=== PATIENT | female | born 1990 | race Caucasian/White ===

== ENCOUNTER 2018-05-29 00:58 | Inpatient (IN) ==
[2018-05-29 00:51] LABS: Basophils # 0.1 K/mcL (0.0-0.2); Basophils % 0.3 %; Eosinophils # 0.4 K/mcL (0.0-0.6); Eosinophils % 2.2 %; Hematocrit 35.2 % (35.3-44.9); Hemoglobin 11.1 g/dL (11.5-15.4); Immature Granulocytes % 0.8 % (0-4); Lymphocytes # 1.6 K/mcL (0.6-4.6); Mean Corpuscular HGB Conc 31.5 g/dL (31.6-35.5); Mean Corpuscular Hemoglobin 27.1 pg (28.0-33.3); Mean Corpuscular Volume 85.9 fL (83.0-100.0); Mean Platelet Volume 11.7 fL (9.4-12.4); Monocytes # 1.5 K/mcL (0.0-1.3); Monocytes % 8.1 %; Neutrophils # 14.6 K/mcL (1.6-8.9); Platelet Count 202 K/mcL (140-400); Red Cell Distribution Width 13.1 % (11.5-14.5); Segmented Neutrophils % 79.6 %
[~2018-05-29 00:58] MED LIST: Famotidine 20 MG/2 ML VIAL IVP PRN; Metoclopramide 10 MG/2 ML VIAL IVP PRN; Naloxone 0.4 MG/ML INJ IVP PRN; Ondansetron 4 MG/2 ML VIAL IVP PRN; Ringers Solution, Lactated 1,000 ML IVC SCH; Ringers Solution, Lactated 1,000 ML ONE
[2018-05-29 01:00] LABS: Amphetamine Screen,Urine Negative ng/mL (Cutoff=1000); Barbiturate Screen,Urine Negative ng/mL (Cutoff=200); Benzodiazepines Screen,Urine Negative ng/mL (Cutoff=200); Cannabinoid Screen,Urine Negative ng/mL (Cutoff = 50); Cocaine Screen,Urine Negative ng/mL (Cutoff= 300); Opiate Screen,Urine Negative ng/mL (Cutoff=300); Phencyclidine Screen,Urine Negative ng/mL (Cutoff=25)
[2018-05-29] MEDS ORDERED: Lidocaine -MPF 2% 5 ML VIAL ONE (01:28)
[2018-05-29] MEDS ORDERED: Epidural Premix (fent/bupiv) 110 ML EP ONE (01:30)
[2018-05-29] MEDS ORDERED: Oxytocin 20 units/ LR 1000 mL 20 UNIT/1,000 ML BAG IVC ONE (02:08)
[2018-05-29] MEDS ORDERED: Bupivacaine-MPF 0.25% 10 ML VIAL ONE (02:08)
[2018-05-29] MEDS ORDERED: *HR* Ropivacaine/PF 0.5% 20 ML VIAL ONE (02:08)
--- NOTE | 2018-05-29 02:17 | Anesthesia Evaluation PreOp ---
Date of Encounter: 05/29/18 Time of Encounter: 01:51 - Past History Planned Operation: delivery, spont 6cm Cardiac History: Denies any Significant Hx Pulmonary History: Denies Any Significant HX VOLUNTEER RECRUITMENT COORDINATOR History: Denies Any Significant HX Other Medical History: Other (previous narcotic abuse, stated difficult epidural previous. (questionable scoliosis)) Anesthesia History: No Prior Anesthetic Complications, Past Anesthesia (denies family Hx.) Alcohol Use: none Drug use: other Medications and Allergies Sulfamethoxazole/Trimeth DS [Bactrim DS] 1 each PO BID #20 tablet 10/13/15 [Rx] Buprenorphine HCl [Subutex] 8 mg SL BID 05/29/18 [History] Ranitidine HCl [Acid Operation Research Analyst] 75 mg PO 05/29/18 [History] Allergy/AdvReac Type Severity Reaction Status Date / Time vancomycin Allergy Redness of Verified 10/12/15 22:56 Skin Anesthesia Results - Labs 05/29/18 00:35 Anesthesia Exam - HEENT Pupil (Motor): Pupils equal Mallampati: II Teeth: Normal Oral Opening: Greater than 3 - VOLUNTEER RECRUITMENT COORDINATOR LOC: Oriented, Confused VOLUNTEER RECRUITMENT COORDINATOR Motor: Normal RUE, Normal LUE, Normal RLE, Normal LLE, Normal Face VOLUNTEER RECRUITMENT COORDINATOR Sensory: Normal: RUE, LUE, RLE, LLE, Face - Cardiac Rhythm: Regular Murmur: None - Pulmonary Breath Sounds: bilateral Clear Respiratory Effort: Symmetrical Anesthesia Assess/Plan ASA Score: 2 Level of consciousness: Cooperative, Oriented Anesthetic Plan: General, Spinal, Epidural Monitoring Plan: Standard Monitors Recovery Plan: PACU
--- NOTE | 2018-05-29 02:22 | Anesthesia Procedures ---
Date of Encounter: 05/29/18 Time of Encounter: 01:51 Procedures: Anesthesia - Epidural/Spinal Patient ID/Chart reviewed: Yes Patient examined: Yes OB Eval: Gestational age: term OB Eval: : 2 OB Eval: Hx Para: 1 OB Eval: Contractions: Non-stressed pattern Consent Obtained: Yes Supplemental Oxygen: None/Room Air Site Prep: Aseptic Technique, Sterile prep and drape, 0.5% Chlorhexidine/Alcohol Patient position: right lateral decubitus Local Anesthetic: Lidocaine 1% Amount of Local Anesthetic used: 2 Touhy Needle Gauge: 18 Touhy Needle Depth (cm): 6 Catheter Depth at Skin (cm): 10 Test Dose (1.5% Lido + Epi): Volume given (mls): 3 Test Dose Result: Negative Loading Dose: Other: 10ml from solution Loading Dose Administered: Thru Catheter Infusion Med: 0.125% Bupivacaine w/ 2 mcg/ml Fentanyl Infusion Rate (mls/hr): [address]: Tegaderm, Tape Interspace Used: L4-L5 Loss of Resistance (LENARD): Yes (saline) Blood: No CSF: No Paresthesia: No Procedure: vss though out procedure, FHR per RN stable, pt moving alot during placement.
[2018-05-29] MEDS ORDERED: Epidural Premix (fent/bupiv) 110 ML EP SCH (02:30)
--- NOTE | 2018-05-29 04:20 | OB/GYN History & Physical ---
Date of Encounter: 05/29/18 Time of Encounter: 04:20 Assessment and Plan (1) 39 weeks gestation of Current visit: Yes Status: Acute 27 y/o @ 39+3 weeks, in labor, GBS neg cervix checked and 6cm, will AROM, allow labor to progress, anticipate History of Present Illness HPI: Ms. Santana is a 27 year old female @ 39+3 weeks presents to L&D with ctxs. No LOF or VB, feels good FM. GBS neg. Past Med Surg Social Fam HX - Past Medical History Medical history: migraine Additional medical history: hx MRSA, kidney infection Psychiatric history: no psych history - Social History Smoking Status: Never smoker Smokeless Tobacco Status: Yes Alcohol use: none Drug use: other Obstetrical History - Pregnancies : 3 Para: 1 Medications and Allergies Sulfamethoxazole/Trimeth DS [Bactrim DS] 1 each PO BID #20 tablet 10/13/15 [Rx] Buprenorphine HCl [Subutex] 8 mg SL BID 05/29/18 [History] Ranitidine HCl [Acid Carving Machine Operator] 75 mg PO 05/29/18 [History] Allergy/AdvReac Type Severity Reaction Status Date / Time vancomycin Allergy Redness of Verified 10/12/15 22:56 Skin Exam - Constitutional Constitutional: no acute distress - HEENT HEENT: PERRL - Neck Neck exam: full ROM - Lungs Respiratory exam: CTAB - Cardiovascular Cardiovascular exam: RRR - Abdomen Abdomen: Present: gravid Results Result Diagrams: 05/29/18 00:35 Abnormal lab results WBC 18.3 K/mcL (4.3-11.1) H 05/29/18 00:35 Hgb 11.1 g/dL (11.5-15.4) L 05/29/18 00:35 Hct 35.2 % (35.3-44.9) L 05/29/18 00:35 MCH 27.1 pg (28.0-33.3) L 05/29/18 00:35 MCHC 31.5 g/dL (31.6-35.5) L 05/29/18 00:35 Neutrophils # 14.6 K/mcL (1.6-8.9) H 05/29/18 00:35 Monocytes # 1.5 K/mcL (0.0-1.3) H 05/29/18 00:35 All other labs normal.
--- NOTE | 2018-05-29 05:30 | OB/GYN Procedure Note ---
Delivery - Delivery Date: 05/29/18 Provider: Lianna Barroso Intrapartum events: none Delivery induction: none Delivery augmentation: rupture of membranes Delivery monitor: external FHT, external uterine Anesthesia: epidural Quantitated Blood Loss: 50 - Repair Episiotomy: none Laceration Description: Periurethral, Perineal - 1st Degree - Complications Delivery complications: none - Disposition Mom disposition: stable in LDR disposition: stable in LDR - Comments Comments: 27 y/o now delivered a viable male infant @ 0453hrs. delivered ROBY, no nuchal cord, APGARs 8/9. weight 3460g (7lbs 10oz), EBL 50cc. Placenta delivered @ 0455hrs. 1st degree laceration and bilateral periurethral laceration repaired with 3-0 monocryl. Mom and stable.
[2018-05-29] MEDS ORDERED: Oxytocin 20 units/ LR 1000 mL 20 UNIT/1,000 ML BAG IVC SCH (06:15)
[2018-05-29] MEDS ORDERED: Measles/Mumps/Rubella Vacc 0.5 ML VIAL SQ PRN (06:15)
[2018-05-29] MEDS: Ibuprofen 600 MG TABLET PO PRN ×2 (06:27→14:51)
[2018-05-29] MEDS: *HR* Buprenorphine HCl 8 MG TAB.SUBL SL SCH ×2 (09:06→21:03)
[2018-05-29] MEDS: Prenatal Vit/FA 1 EACH TABLET PO SCH (09:06)
[2018-05-29] MEDS: Acetaminophen 325 MG TABLET PO PRN (10:28)
[2018-05-30] MEDS: Ibuprofen 600 MG TABLET PO PRN (05:45)
[2018-05-30] MEDS: Prenatal Vit/FA 1 EACH TABLET PO SCH (07:53)
[2018-05-30] MEDS: Acetaminophen 325 MG TABLET PO PRN (07:54)
[2018-05-30] MEDS: *HR* Buprenorphine HCl 8 MG TAB.SUBL SL SCH (07:54)
[2018-05-30 08:04] VITALS: BP 101/64
--- NOTE | 2018-05-30 08:39 | Discharge Summary ---
Date of Encounter: 05/30/18 Time of Encounter: 08:37 - Discharge Diagnosis (1) Vaginal delivery Priority: Primary Status: Acute Comments: Continue routine care discharge to guest today per policy follow up with Dr. Barroso in 4-6 weeks (2) Breast feeding status of mother Priority: Secondary Status: Acute Comments: support prn - Discharge Medications Prescriptions: Ibuprofen [Motrin] 600 mg PO Q6HR PRN #60 tablet PRN Reason: Cramping Home Medications: Buprenorphine HCl [Subutex] 8 mg SL BID 05/29/18 [History] Ibuprofen [Motrin] 600 mg PO Q6HR PRN #60 tablet 05/30/18 [Rx] Vit/FA 1 each PO DAILY tablet 05/30/18 [Rx] Allergies/Adverse Reactions: Allergy/AdvReac Type Severity Reaction Status Date / Time vancomycin Allergy Redness of Verified 10/12/15 22:56 Skin Data Procedures and tests throughout hospitalization: Laboratory Tests 05/29/18 05/29/18 00:35 00:35 WBC 18.3 H RBC 4.10 Hgb 11.1 L Hct 35.2 L MCV 85.9 MCH 27.1 L MCHC 31.5 L RDW 13.1 Plt Count 202 MPV 11.7 Immature Gran % 0.8 Seg Neutrophils % 79.6 Lymphocytes % 9.0 Monocytes % 8.1 Eosinophils % 2.2 Basophils % 0.3 Neutrophils # 14.6 H Lymphocytes # 1.6 Monocytes # 1.5 H Eosinophils # 0.4 Basophils # 0.1 Urine Opiates Screen Negative Ur Barbiturates Screen Negative Ur Phencyclidine Scrn Negative Ur Amphetamines Screen Negative U Benzodiazepines Scrn Negative Urine Cocaine Screen Negative U Marijuana (THC) Screen Negative Ur Drug Screen Interp See Below Date of admission: 05/29/18 00:58 Consults: 05/29/18 06:15 Consult to Camper Assembler [CONS] Routine Comment: Vaginal delivery, consult needed Discharging clinician: Irene Concepcion Anticipated date of discharge: 05/30/18 - Patient Status Disposition: Home, Self-Care Condition: Good Functional capacity at discharge: independent ambulation - Discharge Instructions Follow Up With: Lianna Barroso MD [Partnered Physician] - - Diet and Activity Activity: increase activity as tolerated Diet: regular diet Hospital Course Reason for admission: induction of labor Delivery: Episiotomy: none Laceration: 1st degree Other procedures: none complications: none Discharge diagnosis: IUP at term delivered baby: male (breast feeding) Time Attestation: Total time spent providing and/or coordinating discharge services: Time Spent: Less than 30 minutes Exam - Constitutional Vitals: Temp Pulse Resp BP Pulse Ox 97.8 F 72 16 101/64 97 05/30/18 08:03 05/30/18 08:03 05/30/18 08:03 05/30/18 08:03 05/30/18 02:35 General appearance IM: A&O X 3, pleasant, answers questions appropriately - Respiratory Respiratory exam: Present: CTAB - Cardiovascular Cardiovascular exam IM: Present: RRR, +S1, +S2 - GI/Abdominal GI/Abdominal exam IM: normal bowel sounds - Uterine Tone: Firm Uterus Position: At Umbilicus, Midline - Extremities Exam Extremities exam IM: Present: full ROM, normal capillary refill, normal inspection - Neurological Exam Neurological exam: alert, oriented X3, reflexes normal
[2018-05-30 10:58] LABS: Basophils # 0.1 K/mcL (0.0-0.2); Basophils % 0.5 %; Eosinophils # 0.8 K/mcL (0.0-0.6); Eosinophils % 6.1 %; Hematocrit 33.4 % (35.3-44.9); Hemoglobin 10.3 g/dL (11.5-15.4); Immature Granulocytes % 0.6 % (0-4); Lymphocytes % 15.1 %; Mean Corpuscular HGB Conc 30.8 g/dL (31.6-35.5); Mean Corpuscular Hemoglobin 27.2 pg (28.0-33.3); Mean Corpuscular Volume 88.1 fL (83.0-100.0); Mean Platelet Volume 11.9 fL (9.4-12.4); Monocytes # 1.1 K/mcL (0.0-1.3); Monocytes % 8.4 %; Platelet Count 174 K/mcL (140-400); Red Blood Count 3.79 M/mcL (3.82-4.97); Red Cell Distribution Width 13.1 % (11.5-14.5); Segmented Neutrophils % 69.3 %
== END 2018-05-30 13:40 | disposition home or self-care (01) | DRG 560 ==
LOC: 1NENULAB → 1NENUOBS 08:08
PROVIDERS: ADMIT Registered Nurse; ATTEND Registered Nurse